=== PATIENT | female | born 2000 | race Caucasian/White ===

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

== ENCOUNTER 2022-10-15 18:34 | Emergency (ER) | payer OTHER ==
[~2022-10-15] VITALS: Ht 165.1 cm; Wt 108.9 kg
[2022-10-15 18:46] VITALS: BP 130/104
[2022-10-15] MEDS ORDERED: BACITRACIN ZIN1 EAC1 TOP (20:38)
== END 2022-10-15 20:48 | disposition home or self-care (01) ==
LOC: ER 18:34
DX: S00.81XA Abrasion of other part of head, initial encounter (principal); S00.211A Abrasion of right eyelid and periocular area, initial encounter; S50.311A Abrasion of right elbow, initial encounter; S80.211A Abrasion, right knee, initial encounter; S80.811A Abrasion, right lower leg, initial encounter; V29.91XA Electric (assisted) bicycle rider (driver) (passenger) injured in unspecified traffic accident, initial encounter; Y93.55 Activity, bike riding
CPT/HCPCS: 99283; A9270